=== PATIENT | male | born 1995 | race Caucasian/White ===

== ENCOUNTER 2017-12-21 11:50 | Emergency (ER) | payer SELFPAY ==
--- NOTE | 2017-12-21 12:50 | EDPHY ---
HPI/HX/ROS/PE/MDM - Data Points Imaging: Discussed imaging studies w/ curb and gutter laborer Radiologist Narrative: Evelina Sage Template CHIEF COMPLAINT: HPI: This patient is a 21 year old male with history of migraines. In May of 2012, he had a seizure and reports that an MRI completed at [facility] revealed a dime-sized colloid cyst. Two weeks ago, he woke with a migraine which has persisted since that time. His current headache feels worse than pervious migraines. He has tried ibuprofen for relief, but this has not resolved his symptoms and he has not been able to sleep or eat. He is worried that the cyst is growing. He endorses vomiting and generalized weakness. He denies fever, chest pain, shortness of breath, abdominal pain, diarrhea, urinary complaints, numbness or paresthesias in his extremities, or other associated symptoms. REVIEW OF SYSTEMS: Aside from elements discussed in the HPI, a comprehensive 10-point review of systems was reviewed and is negative. PMH: Migraines. SOCIAL HISTORY: Lives in [place]. Student. Single. PHYSICAL EXAM: General:Patient is alert, in no acute distress. ENT:Eyes are normal to inspection. ENT inspection normal. Neck: Normal inspection. Full range of motion. Respiratory:No respiratory distress. Breath sounds normal bilaterally. Cardiovascular: Regular rate and rhythm. Strong peripheral pulses. Normal cap refill. Abdomen:The abdomen is nontender to palpation. There are no peritoneal signs. There are normal bowel sounds. Back: Normal to inspection. No tenderness to palpation. Skin: Normal color. No rash. Warm and dry. Extremities: Normal appearance. Full range of motion. Neuro: Oriented x3. Normal motor function. Normal sensory function. (Dick Hoyt) ED Course: 21 y/o male presents with 2 week history of migraine. Plan for CT head for further evaluation. Plan for labs including CBC, chemistries. Plan to administer 1L IV NS, 25mg IV Benadryl, 10mg IV Reglan, 30mg IV Toradol for symptom relief. Attempted to find past medical records on [facility] - none found. 13:[address] Melendez, radiologist. CT reveals a mass in the 3rd ventricle causing moderate hydrocephalus. No comparison studies available. 13:16 Patient now reports his MRI may have been completed at [facility]. Plan to contact the facility for records. Reviewed past medical records from [facility]. Plan to consult with neurosurgery. 14:[address] Garcia, neurosurgeon. Plan for MRI for further evaluation. Dr. Garcia will consult the patient. 15:00 Care of this patient signed out to Dr. Parekh at shift change pending MRI result and neuro consult. (Dick Hoyt) I assumed care of this patient from Dr. Hoyt. The patient was seen in the emergency department by Neurosurgery and sent for an MRI scan. The MRI was completed and the results were telephoned to me. The MRI shows a 10 mm colloid cyst in the 3rd ventricle with resultant tire cephalosporin. The neurosurgery team evaluated these images. Dr. Razo spoke with the patient and recommends follow-up in 2 years. No other intervention recommended at this time. Patient feels markedly better after his treatment in the emergency department. He is no longer experiencing headache. He is comfortable returning home and agrees to follow up with Neurosurgery as recommended. Danger signs reviewed with him. (Lor Parekh) - Data Points Imaging Results: Imaging Impressions Head CT 12/21/17 12:52 Impression: Mass in the anterior third ventricle causing obstructive hydrocephalus, which likely corresponds to the reported colloid cyst on outside imaging, although no previous imaging is available for comparison. If previous imaging can be made available, I will be happy to compare it. Findings discussed with Dr. Dick Hoyt on December 21, 2017 at 1311 hours. Brain MRI 12/21/17 14:11 Impression: 1. 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 2. Mild bilateral ethmoid sinusitis. 3. No acute infarct or midline shift. Findings and recommendations discussed with Emergency Department physician, Dr. Lor Parekh at 15:50 hour, 12/21/2017. Final report concurs with initial preliminary interpretation. Laboratory Results: Laboratory Results 12/21/17 12:15 12/21/17 12:15 12/21/17 12/21/17 12:15 12:15 WBC 6.89 10^3/uL 10^3/uL (3.80-9.50) RBC 5.47 10^6/uL 10^6/uL (4.40-6.38) Hgb 16.9 g/dL g/dL (13.7-17.5) Hct 48.6 % % (40.0-51.0) MCV 88.8 fL fL (81.5-99.8) MCH 30.9 pg pg (27.9-34.1) MCHC 34.8 g/dL g/dL (32.4-36.7) RDW 12.1 % % (11.5-15.2) Plt Count 251 10^3/uL 10^3/uL (150-400) MPV 11.1 fL fL (8.7-11.7) Neut % (Auto) 69.2 % % (39.3-74.2) Lymph % (Auto) 23.1 % % (15.0-45.0) Coleman % (Auto) 5.5 % % (4.5-13.0) Eos % (Auto) 1.3 % % (0.6-7.6) Baso % (Auto) 0.6 % % (0.3-1.7) Nucleat RBC Rel Count 0.0 % % (0.0-0.2) Absolute Neuts (auto) 4.77 10^3/uL 10^3/uL (1.70-6.50) Absolute Lymphs (auto) 1.59 10^3/uL 10^3/uL (1.00-3.00) Absolute Monos (auto) 0.38 10^3/uL 10^3/uL (0.30-0.80) Absolute Eos (auto) 0.09 10^3/uL 10^3/uL (0.03-0.40) Absolute Basos (auto) 0.04 10^3/uL 10^3/uL (0.02-0.10) Absolute Nucleated RBC 0.00 10^3/uL 10^3/uL (0-0.01) Immature Gran % 0.3 % % (0.0-1.1) Immature Gran # 0.02 10^3/uL 10^3/uL (0.00-0.10) Sodium 142 mEq/L mEq/L (135-145) Potassium 4.0 mEq/L mEq/L (3.3-5.0) Chloride 106 mEq/L mEq/L (97-110) Carbon Dioxide 23 mEq/l mEq/l (22-31) Anion Gap 13 mEq/L mEq/L (8-16) BUN 10 mg/dL mg/dL (7-23) Creatinine 0.9 mg/dL mg/dL (0.7-1.3) Estimated GFR > 60 Glucose 84 mg/dL mg/dL (70-100) Calcium 9.9 mg/dL mg/dL (8.5-10.4) Medications Given: Discontinued Medications Diphenhydramine HCl (Benadryl Injection) 25 mg IVP EDNOW ONE Stop: 12/21/17 12:53 Last Admin: 12/21/17 13:06 Dose: 25 mg Sodium Chloride (Ns) 1,000 mls @ 0 mls/hr IV ONCE ONE; Wide Open PRN Reason: Protocol Stop: 12/21/17 12:53 Last Admin: 12/21/17 13:06 Dose: 1,000 mls Ketorolac Tromethamine (Toradol) 30 mg IVP EDNOW ONE Stop: 12/21/17 12:53 Last Admin: 12/21/17 13:06 Dose: 30 mg Metoclopramide HCl (Reglan Injection) 10 mg IVP EDNOW ONE Stop: 12/21/17 12:53 Last Admin: 12/21/17 13:06 Dose: 10 mg General Time Seen by Provider: 12/21/17 12:43 Initial Vital Signs: Initial Vital Signs Temperature (C) 37.1 C 12/21/17 11:54 Heart Rate 88 12/21/17 11:54 Respiratory Rate 17 12/21/17 11:54 Blood Pressure 131/81 H 12/21/17 11:54 O2 Sat (%) 95 12/21/17 11:54 O2 Delivery Mode Room Air Allergies/Adverse Reactions: No Known Allergies Allergy (Unverified 12/21/17 11:53) Home Medications: Medication Instructions Recorded NK [No Known Home Meds] 12/21/17 Departure - Departure Disposition: Home, Routine, Self-Care Clinical Impression: Headache, Colloid cyst of third ventricle Condition: Good Instructions: Acute Headache (ED) Additional Instructions: Follow up with neurosurgery, Dr. Razo or any of the neurosurgeons at [facility], as per his instructions--in two years with a repeat MRI. I am also referring you to a neurologist to see if you have persistent headaches --Dr Sorto. Referrals: Pradip Razo MD [Medical Doctor] - As per Instructions Chuck Sorot DO [Medical Doctor] - As per Instructions Report Scribed for: Dick Hoyt Report Scribed by: Ashley Rodgers Date of Report: 12/21/17 Time of Report: 13:13 Physician Review and Approval Statement: Portions of this note were transcribed by an ED scribe. I personally performed the history, physical exam, and medical decision making; and confirm the accuracy of the information in the transcribed note.
[2017-12-21] MEDS ORDERED: NS 1,000 ML IV ONE (12:52)
[2017-12-21] MEDS ORDERED: KETOROLAC 30 MG/1 ML SDV IVP ONE (12:52)
[2017-12-21] MEDS ORDERED: METOCLOPRAMIDE 10 MG/2 ML VIAL IVP ONE (12:52)
[2017-12-21 13:25] LABS: PLATELET COUNT 251 10^3/uL (150-400)
[2017-12-21] MEDS ORDERED: GADOBUTROL 10 ML VIAL IVP ONE (15:12)
--- NOTE | 2017-12-21 15:54 | GHP ---
[f rep st] HISTORY AND PHYSICAL DATE OF ADMISSION: 12/21/2017 CHIEF COMPLAINT: 1. Headaches. 2. History of colloid cyst with moderate hydrocephalus. TIME/LOCATION: The patient is seen in the emergency department both by myself and Dr. Razo at 1445 on 12/21/2017. HISTORY OF PRESENT ILLNESS: The patient is a 21-year-old male who has a history of chronic migraines. In May of 2012, he had a seizure and reports that an MRI completed at [facility] revealed a dime-sized colon cyst. He was seen by Dr. Natarajan in our group. Recommendations for continued observation and imaging was given to the patient. He states that he did not follow up as recommended. Two weeks ago, he woke up with a migraine that has persisted since then. He has been treated with migraine therapy, specifically Topamax, but stopped the medicine on his own due to drowsiness. He also has a history of seizures that he took this medication for as well. He currently describes a headache that is worse than previous migraines. He has tried anti-inflammatories without any significant relief. He denies any upper or lower extremity complaints. No nausea, vomiting, or diarrhea. He does have some generalized weakness. He denies any other complaints, such as fever, chest pain, shortness of breath, abdominal pain. No urinary complaints. No changes in bowel or bladder habits. REVIEW OF SYSTEMS: Complete 10-point review of systems was negative, other than noted in HPI. PAST MEDICAL HISTORY: Significant for: 1. Migraines. 2. History of seizure. 3. History of colloid cyst. MEDICATIONS: Anti-inflammatories as needed for headaches. The patient stops Topamax on his own. PAST SURGICAL HISTORY: Negative. ALLERGIES: No known drug allergies. FAMILY HISTORY: Reviewed and otherwise negative. SOCIAL HISTORY: Patient is not , has no children. He does smoke. He drinks occasional alcohol. Denies any illicit drug use. IMMUNIZATIONS: Up to date. TRAVEL: No recent travel. PHYSICAL EXAMINATION: GENERAL: This is an awake, alert, oriented male, in no acute distress. VITAL SIGNS: Most recent: Blood pressure 118/75 with a MAP of 89, heart rate of 63, 16 respirations, 97% on room air, temperature 37.1. HEENT: Head is normocephalic, atraumatic. Pupils are equal, round, reactive to light. EOMI is intact. Full visual michael by confrontation. Ears patent. Nose is patent. NECK: Soft and supple. No midline tenderness. Full range of motion in flexion, extension, lateral bending, rotation. RESPIRATORY/CARDIAC: Deferred. ABDOMEN: Soft, nontender. No peritoneal signs. /RECTAL: Deferred. NEURO: The patient is awake, alert, and oriented to name, place, location, date, time, and situation. Memory is intact to immediate, past, and current events. Speech: No aphasia, dysarthria, dysphonia. Cranial nerves 2- 12 grossly intact. Motor: Patient has 5/5 strength in all muscle groups of bilateral upper and lower extremities to include deltoids, biceps, triceps, brachioradialis, wrist flexion extensors, dip brazier, intrinsic fingers, iliopsoas, quadriceps, hamstring, plantar flexion, dorsiflexion, EHL testing. Sensation is grossly intact to light touch throughout all dermatome distributions upper and lower extremities. Negative straight leg raise. Negative MARCELINO test. Reflexes of biceps, triceps, brachioradialis, knee jerk, and ankle jerk 2+/4. Toes are downgoing bilaterally. Gutierrez's negative. Babinski negative. No clonus. MEDICAL DECISION MAKING: Laboratory tests obtained 12/21/2017, shows a white count of 6.89 with an H/H of 16.9 and 48.6 with a platelet count 251. Chemistries on 12/21/2017, were negative. Sodium 142, potassium 4.0, chloride 106, CO2 23, BUN 10, creatinine of 0.9, and a glucose of 84. CT scan of the head obtained 12/21/2017, at 1252 shows a mass in the anterior 3rd ventricle causing some obstructive hydrocephalus, likely representing a colloid cyst. A report from [facility] dated 07/14/2012, at the time showed a colloid cyst in the foramen of Monro measuring 1.2 x 0.8 x 0.8 cm, resulting in some moderate hydrocephalus. The CT scan that was obtained today measured 1.3 x 1 cm. Pending MRI of the brain. IMPRESSION: 1. Headaches with history of migraines. 2. History of seizures. 3. Colloid cyst first discovered in 2012. PLAN/DISCUSSION: The patient is a 21-year-old male who came in the emergency department with worsening headaches over the past few weeks. He had a CT scan that was done that showed a 1.0 x 1.3 cm circumscribed cyst noted in the anterior 3rd ventricle, which cause some moderate hydrocephalus. He has a pending MRI of the brain. The patient was seen in both by myself and Dr. Razo in the emergency department at 1445. We will obtain the MRI and this will give us the step in treatment plan at this point. The patient states he is not interested in any surgery at this point, but if absolutely necessary, he will consider it. He has been treated by the emergency room with pain medication and he is resting at this point. He is awake, alert, oriented x4. He has a GCS of 15. NEUROSURGEY ATTENDING NOTE I met with the patient and reviewed the imaging and plans with him. He will return to clinic in 2 years with a repeat MRI of the brain to follow his colloid cyst. His symptoms are improved and he no longer had headaches and therefore was discharged from the ER. All questions were answered. /[id number]/MODL MTDD
[2017-12-21 16:37] VITALS: BP 126/78
== END 2017-12-21 16:37 | disposition home or self-care (01) ==
DX: R51 Headache (principal); G93.0 Cerebral cysts; E86.9 Volume depletion, unspecified
CPT/HCPCS: 96374; A9585; J1200; J1885; J2765